=== PATIENT | female | born 1950 | race Caucasian/White ===

== ENCOUNTER 2018-02-11 22:18 | Emergency (ER) | payer OTHER, MEDICARE ==
[2018-02-12] MEDS: HYDROCODONE/APAP (5/325) TAB PO (00:40)
[2018-02-12] MEDS: ONDANSETRON (ODT) 4 MG TAB ODT (00:40)
== END 2018-02-12 01:39 | disposition home or self-care (01) ==
LOC: FTE 22:18
DX: M25.512 Pain in left shoulder (principal); R07.81 Pleurodynia
CPT/HCPCS: 71100; 73030; 93005; 99284-25